=== PATIENT | female | born 1935 | race Caucasian/White ===

== ENCOUNTER 2017-07-10 08:14 | Outpatient (CLI) | payer OTHER | END 2017-07-10 08:38 | disposition home or self-care (01) | LOC: LAB 08:14 | DX: E78.4 Other hyperlipidemia (principal); E11.9 Type 2 diabetes mellitus without complications; E04.1 Nontoxic single thyroid nodule; N39.0 Urinary tract infection, site not specified; E55.9 Vitamin D deficiency, unspecified; E53.9 Vitamin B deficiency, unspecified ==

== ENCOUNTER → 2017-07-13 | Outpatient (CLI) | payer OTHER | END | disposition home or self-care (01) | LOC: LAB 13:49 | DX: E53.9 Vitamin B deficiency, unspecified (principal); M81.0 Age-related osteoporosis without current pathological fracture ==

== ENCOUNTER → 2017-09-10 | Outpatient (CLI) | payer OTHER | END | disposition home or self-care (01) | LOC: LAB 07:21 | DX: D64.89 Other specified anemias (principal); E53.1 Pyridoxine deficiency; E78.4 Other hyperlipidemia; M79.1 Myalgia; M81.0 Age-related osteoporosis without current pathological fracture; M19.90 Unspecified osteoarthritis, unspecified site; E03.8 Other specified hypothyroidism; E55.9 Vitamin D deficiency, unspecified; D51.9 Vitamin B12 deficiency anemia, unspecified; N39.0 Urinary tract infection, site not specified; Z13.0 Encounter for screening for diseases of the blood and blood-forming organs and certain disorders involving the immune mechanism; R19.5 Other fecal abnormalities ==

== ENCOUNTER 2018-07-15 09:04 | Outpatient (CLI) | payer OTHER | END 2018-07-15 09:43 | disposition home or self-care (01) | LOC: LAB 09:04 | DX: D64.89 Other specified anemias (principal); M19.90 Unspecified osteoarthritis, unspecified site; E78.49 Other hyperlipidemia; E03.8 Other specified hypothyroidism; E55.9 Vitamin D deficiency, unspecified; D51.8 Other vitamin B12 deficiency anemias; N39.0 Urinary tract infection, site not specified; Z13.0 Encounter for screening for diseases of the blood and blood-forming organs and certain disorders involving the immune mechanism; R19.5 Other fecal abnormalities; E53.8 Deficiency of other specified B group vitamins; M79.18 Myalgia, other site; E56.8 Deficiency of other vitamins ==

== ENCOUNTER 2018-07-25 08:21 | Outpatient (CLI) | payer OTHER | END 2018-07-25 17:10 | disposition home or self-care (01) | LOC: LAB 08:21 | DX: E27.3 Drug-induced adrenocortical insufficiency (principal) ==

== ENCOUNTER 2018-09-08 08:55 | Outpatient (CLI) | payer OTHER | END 2018-09-08 09:12 | disposition home or self-care (01) | LOC: RAD 501 08:55 | DX: H25.011 Cortical age-related cataract, right eye (principal); Z98.41 Cataract extraction status, right eye ==

== ENCOUNTER 2018-10-10 07:19 | Outpatient (CLI) | payer OTHER | END 2018-10-10 09:54 | disposition home or self-care (01) | LOC: LAB 07:19 | DX: D64.89 Other specified anemias (principal); M19.90 Unspecified osteoarthritis, unspecified site; E78.49 Other hyperlipidemia; E03.8 Other specified hypothyroidism; E55.9 Vitamin D deficiency, unspecified; D51.8 Other vitamin B12 deficiency anemias; N39.0 Urinary tract infection, site not specified; Z13.0 Encounter for screening for diseases of the blood and blood-forming organs and certain disorders involving the immune mechanism; R19.5 Other fecal abnormalities ==

== ENCOUNTER 2019-05-23 07:41 | Outpatient (CLI) | payer OTHER | END 2019-05-23 07:58 | disposition home or self-care (01) | LOC: LAB 07:41 | DX: D64.89 Other specified anemias (principal); E78.49 Other hyperlipidemia; E03.8 Other specified hypothyroidism; E55.9 Vitamin D deficiency, unspecified; D51.8 Other vitamin B12 deficiency anemias; N39.0 Urinary tract infection, site not specified; Z13.0 Encounter for screening for diseases of the blood and blood-forming organs and certain disorders involving the immune mechanism; R19.5 Other fecal abnormalities; E11.9 Type 2 diabetes mellitus without complications; M19.90 Unspecified osteoarthritis, unspecified site ==

== ENCOUNTER 2019-08-30 08:06 | Outpatient (CLI) | payer OTHER | END 2019-08-30 08:17 | disposition home or self-care (01) | LOC: LAB 08:06 | DX: D64.89 Other specified anemias (principal); D52.8 Other folate deficiency anemias; E78.49 Other hyperlipidemia; M79.18 Myalgia, other site; E55.9 Vitamin D deficiency, unspecified; E56.9 Vitamin deficiency, unspecified ==

== ENCOUNTER 2020-08-22 11:35 | Outpatient (CLI) | payer OTHER | END 2020-08-22 11:39 | disposition home or self-care (01) | LOC: LAB 11:35 | PROVIDERS: ATTEND Radiology Diagnostic Radiology | DX: N20.0 Calculus of kidney (principal) ==

== ENCOUNTER 2020-08-26 07:39 | Outpatient (CLI) | payer OTHER | END 2020-08-26 14:20 | disposition home or self-care (01) | LOC: TOM 07:39 | PROVIDERS: ATTEND Internal Medicine | DX: K76.0 Fatty (change of) liver, not elsewhere classified (principal); K57.90 Diverticulosis of intestine, part unspecified, without perforation or abscess without bleeding; K52.89 Other specified noninfective gastroenteritis and colitis | CPT/HCPCS: 74177; Q9965 ==

== ENCOUNTER 2020-09-10 08:10 | Outpatient (CLI) | payer OTHER | END 2020-09-10 08:19 | disposition home or self-care (01) | LOC: LAB 08:10 | PROVIDERS: ATTEND Internal Medicine | DX: D64.89 Other specified anemias (principal); M19.90 Unspecified osteoarthritis, unspecified site; E78.49 Other hyperlipidemia; E03.8 Other specified hypothyroidism; E55.9 Vitamin D deficiency, unspecified; D51.8 Other vitamin B12 deficiency anemias; N39.0 Urinary tract infection, site not specified; Z13.0 Encounter for screening for diseases of the blood and blood-forming organs and certain disorders involving the immune mechanism; R19.5 Other fecal abnormalities; E11.9 Type 2 diabetes mellitus without complications; Z12.11 Encounter for screening for malignant neoplasm of colon; D52.8 Other folate deficiency anemias; M79.18 Myalgia, other site; E56.8 Deficiency of other vitamins; D62 Acute posthemorrhagic anemia ==

== ENCOUNTER 2020-10-30 08:00 | Outpatient (CLI) | payer OTHER | END 2020-10-30 08:06 | disposition home or self-care (01) | LOC: LAB 08:00 | PROVIDERS: ATTEND Internal Medicine | DX: E11.9 Type 2 diabetes mellitus without complications (principal); E04.1 Nontoxic single thyroid nodule; E78.49 Other hyperlipidemia; E55.9 Vitamin D deficiency, unspecified; E53.8 Deficiency of other specified B group vitamins ==

== ENCOUNTER 2021-10-02 08:00 | Outpatient (CLI) | payer OTHER | END 2021-10-02 08:30 | disposition home or self-care (01) | LOC: PPH VACUNA 08:00 | PROVIDERS: ATTEND Emergency Medicine Pediatric Emergency Medicine | DX: Z23 Encounter for immunization (principal) ==

== ENCOUNTER 2022-08-05 11:18 | Outpatient (CLI) | payer OTHER | END 2022-08-05 11:27 | disposition home or self-care (01) | LOC: MRI 11:18 | PROVIDERS: ATTEND Otolaryngology Otology & Neurotology | DX: M54.2 Cervicalgia (principal) | CPT/HCPCS: 72141 ==

== ENCOUNTER 2022-08-18 07:03 | Outpatient (CLI) | payer OTHER | END 2022-08-18 07:09 | disposition home or self-care (01) | LOC: LAB 07:03 | DX: D64.9 Anemia, unspecified (principal); M19.90 Unspecified osteoarthritis, unspecified site; E78.5 Hyperlipidemia, unspecified; E03.9 Hypothyroidism, unspecified; E55.9 Vitamin D deficiency, unspecified; D51.9 Vitamin B12 deficiency anemia, unspecified; N39.0 Urinary tract infection, site not specified; Z13.0 Encounter for screening for diseases of the blood and blood-forming organs and certain disorders involving the immune mechanism; R19.5 Other fecal abnormalities; E11.9 Type 2 diabetes mellitus without complications; Z12.11 Encounter for screening for malignant neoplasm of colon ==

== ENCOUNTER 2022-09-10 09:52 | Outpatient (CLI) | payer OTHER | END 2022-09-10 09:53 | disposition home or self-care (01) | LOC: NUCLEAR 09:52 | PROVIDERS: ATTEND Psychiatry & Neurology Neurology | DX: G45.8 Other transient cerebral ischemic attacks and related syndromes (principal); G45.0 Vertebro-basilar artery syndrome ==

== ENCOUNTER 2022-09-10 11:28 | Outpatient (CLI) | payer OTHER | END 2022-09-10 11:39 | disposition home or self-care (01) | LOC: MRI 11:28 | PROVIDERS: ATTEND Psychiatry & Neurology Neurology | DX: R41.3 Other amnesia (principal) | CPT/HCPCS: 70551 ==

== ENCOUNTER 2023-10-04 08:20 | Outpatient (CLI) | payer OTHER | END 2023-10-04 08:50 | disposition home or self-care (01) | LOC: MRI 08:20 | DX: R55 Syncope and collapse (principal); I10 Essential (primary) hypertension; J45.909 Unspecified asthma, uncomplicated | CPT/HCPCS: 70551 ==

== ENCOUNTER 2024-04-20 07:15 | Outpatient (CLI) | payer OTHER | END 2024-04-20 07:23 | disposition home or self-care (01) | LOC: MRI 07:15 | PROVIDERS: ATTEND Internal Medicine | DX: C56.2 Malignant neoplasm of left ovary (principal); R97.1 Elevated cancer antigen 125 [CA 125] | CPT/HCPCS: 72197; 74183; Q9965; 72198 ==